=== PATIENT | male | born 1965 | race Caucasian/White ===

== ENCOUNTER 2016-09-01 11:12 | Emergency (ER) | payer OTHER ==
[~2016-09-01] VITALS: Ht 182.9 cm; Wt 88.0 kg
[~2016-09-01 11:12] MED LIST: ACCU-CHEK1 EAC5 MC; BACTRIM DS TAB1 EAC1 ORAL; CEPHALEXIN500 MG ORAL; DOXYCYCLINE MO100 M2 PO; GLUCOPHAGE500 MG ORAL; IBUPROFEN600 MG ORAL; NEURONTIN600 MG ORAL; NORCO 5-325 TA1 EACH ORAL; SINGULAIR10 MG ORAL; SOMA350 MG PO; VENTOLIN HFA18 GM INH
[2016-09-01 11:32] VITALS: BP 129/85
[2016-09-01 13:05] VITALS: BP 120/79
[2016-09-01] MEDS ORDERED: VIREAD300 MG ORAL (13:15)
[2016-09-01] MEDS ORDERED: ISENTRESS400 MG ORAL (13:15)
[2016-09-01 13:30] VITALS: BP 112/82
[2016-09-01 13:33] LABS: BASOPHILS % (AUTO) 0.6 % (0.0-2.0); EOSINOPHILS % (AUTO) 3.1 % (0.0-3.0); LYMPHOCYTES % (AUTO) 20.5 % (20.0-45.0); MEAN CORPUSCULAR HEMOGLOBIN 28.4 PG (27.0-31.0); MEAN CORPUSCULAR VOLUME 86 FL (80-99); MEAN PLATELET VOLUME 11.2 FL (6.5-10.1); MONOCYTES % (AUTO) 8.2 % (1.0-10.0); NEUTROPHILS % (AUTO) 67.6 % (45.0-75.0); PLATELET COUNT 151 K/UL (150-450); RED BLOOD COUNT 5.16 M/UL (4.70-6.10); RED CELL DISTRIBUTION WIDTH 13.7 % (11.6-14.8); WHITE BLOOD COUNT 7.8 K/UL (4.8-10.8)
[2016-09-01 13:44] LABS: ALANINE AMINOTRANSFERASE 26 U/L (3-41); ALBUMIN/GLOBULIN RATIO 1.6 (1.0-2.7); ANION GAP 14 (5-15); ASPARTATE AMINO TRANSFERASE 25 U/L (5-40); CALCIUM 9.5 mg/dL (8.6-10.2); CARBON DIOXIDE 26 mEQ/L (20-30); CHLORIDE 97 mEQ/L (98-107); CREATININE 0.8 mg/dL (0.7-1.2); GLOMERULAR FILTRATION RATE > 60 mL/min (>60); HEMOLYSIS 6; POTASSIUM 3.9 mEQ/L (3.4-4.9); SODIUM 137 mEQ/L (135-145); TOTAL PROTEIN 7.5 g/dL (6.6-8.7)
--- NOTE | 2016-09-01 16:31 | Emergency Room Report ---
History of Present Illness General Chief Complaint: Male Urogenital Problems Source: Patient Present Illness HPI 51-year-old male complains of possible exposure to potential STD times less than 24 hours. States that he was having intercourse nail and nail where he was the penetrating partner during anal intercourse. The patient states that during anal and worse that his condom broke and is worried about having post exposure prophylaxis treatment. States that he is unaware of the patient's STD status and states that he is currently has no symptoms or history of STD. Allergies: Coded Allergies: No Known Allergies (Unverified , 09/12/14) Patient History Past Medical History: see triage record Immunizations: other - patient is unware Reviewed Nursing Documentation: PMH: Agreed, PSxH: Agreed Nursing Documentation-PMH Past Medical History: No History, Except For Hx Cardiac Problems: Yes - high cholesterol Hx Hypertension: Yes Hx Asthma: Yes Hx Diabetes: Yes Hx Cancer: No Hx Gastrointestinal Problems: No Hx Neurological Problems: No Review of Systems All Other Systems: negative except mentioned in HPI Physical Exam Vital Signs Date Time Temp Pulse Resp B/P Pulse Ox O2 Delivery O2 Flow Rate FiO2 09/01/16 11:24 97.9 97 17 129/85 98 Room Air Sp02 EP Interpretation: reviewed, normal General Appearance: no apparent distress, alert, GCS 15, non-toxic Head: normocephalic, atraumatic Eyes: bilateral eye PERRL, bilateral eye normal inspection ENT: hearing grossly normal, no angioedema, normal voice Neck: full range of motion, supple/symm/no masses Respiratory: chest non-tender, lungs clear, normal breath sounds, speaking full sentences Cardiovascular #1: regular rate, rhythm, no edema Gastrointestinal: non tender, soft, non-distended, no guarding Rectal: deferred Genitourinary: normal inspection, penis normal Musculoskeletal: back normal, gait/station normal, normal range of motion Neurologic: alert, oriented x3, responsive, motor strength/tone normal, sensory intact, speech normal Psychiatric: judgement/insight normal, memory normal, mood/affect normal, no suicidal/homicidal ideation Skin: normal color, no rash, warm/dry, well hydrated Lymphatic: no adenopathy Medical Decision Making PA Attestation Dr. Guillen is my supervising physician with whom patient management has been discussed with. Diagnostic Impression: Primary Impression: Patient exposure to body fluids ER Course Pt. presents to the ED c/o body fluid exposure Ddx considered but are not limited to GC/Chlamydia, HIV, Hep, Syphilis, Body Fluid Exposure Vital signs: are WNL, pt. is afebrile H&PE are most consistent with Bodyfluid Exposure ORDERS: CBC, CMP, HIB, Hepatitis Panel baseline ED INTERVENTIONS: Spoke with Roshan Chisholm at [facility]. DISCHARGE: At this time pt. is stable for d/c to home. Will provide printed patient care instructions, and any necessary prescriptions. Care plan and follow up instructions have been discussed with the patient prior to discharge. Last Vital Signs Date Time Temp Pulse Resp B/P Pulse Ox O2 Delivery O2 Flow Rate FiO2 09/01/16 11:24 97.9 97 17 129/85 98 Room Air Disposition: HOME, SELF-CARE Condition: Stable Scripts Raltegravir (Isentress) 400 Mg Tablet 400 MG ORAL EVERY 12 HOURS for 28 Days, #60 TAB Prov: MARIITAMEEM P.A. 09/01/16 Tenofovir Disoproxil Fumarate* (VIREAD*) 300 Mg Tablet 300 MG ORAL DAILY, #30 TAB 0 Refills Prov: SABRY,TAMEEM P.A. 09/01/16 MARIITAMEEM P.A. Sep 01, 2016 16:31
== END 2016-09-01 13:30 | disposition home or self-care (01) ==
LOC: EMR 12:42
DX: Z77.21 Contact with and (suspected) exposure to potentially hazardous body fluids (principal); I10 Essential (primary) hypertension; E11.9 Type 2 diabetes mellitus without complications; J45.909 Unspecified asthma, uncomplicated
CPT/HCPCS: 36415; 80053; 85025; 86703; 99284

== ENCOUNTER 2016-10-19 14:41 | Emergency (ER) | payer OTHER ==
[~2016-10-19] VITALS: Ht 182.9 cm; Wt 72.6 kg
[~2016-10-19 14:41] MED LIST changes: +ISENTRESS400 MG ORAL; +VIREAD300 MG ORAL
[2016-10-19] MEDS ORDERED: KEFLEX500 MG ORAL (16:12)
[2016-10-19 16:22] VITALS: BP 131/76
--- NOTE | 2016-10-19 16:49 | Emergency Room Report ---
History of Present Illness General Chief Complaint: Headache Source: Patient Present Illness HPI Patient is a 51-year-old male who presented after a fall. Patient stated he fell in the shower approximately 2 days ago. He denied vomiting. He reported having moderate neck pain. He denied any numbness or weakness to his extremities. The patient stated he had some pain to his left index finger. Patient denied loss of consciousness. He reported having gradually worsening headache. Patient stated that the swelling to his face and somewhat improved. Allergies: Coded Allergies: No Known Allergies (Unverified , 09/12/14) Patient History Past Medical History: see triage record Reviewed Nursing Documentation: PMH: Agreed, PSxH: Agreed Nursing Documentation-PMH Hx Cardiac Problems: No Hx Hypertension: No Hx Asthma: Yes Hx Diabetes: Yes Hx Cancer: No Hx Gastrointestinal Problems: No Hx Neurological Problems: No Review of Systems All Other Systems: negative except mentioned in HPI Physical Exam Vital Signs Date Time Temp Pulse Resp B/P Pulse Ox O2 Delivery O2 Flow Rate FiO2 10/19/16 15:03 98.2 78 16 122/82 98 Room Air Sp02 EP Interpretation: reviewed, normal General Appearance: normal inspection, well appearing, no apparent distress, alert, GCS 15 Head: atraumatic ENT: normal ENT inspection, hearing grossly normal, normal voice Neck: normal inspection, full range of motion, supple, no bony tend Respiratory: normal inspection, lungs clear, normal breath sounds, no respiratory distress, no retraction, no wheezing Cardiovascular #1: regular rate, rhythm, no edema Gastrointestinal: normal inspection, normal bowel sounds, non tender, soft, no guarding, no hernia Genitourinary: no CVA tenderness Musculoskeletal: normal inspection, back normal, normal range of motion Neurologic: normal inspection, alert, oriented x3, responsive, web production manager III-XII nml as tested, speech normal Psychiatric: normal inspection, judgement/insight normal, mood/affect normal Skin: normal inspection, normal color, no rash Medical Decision Making Diagnostic Impression: Primary Impression: Paronychia Additional Impressions: Facial contusion Cervical muscle strain ER Course Patient presented after a fall.Differential diagnosis included was not limited to neck fracture, CVA, close head injury, syncopal episode, basilar ischemia. Because of complexity of patient's case laboratory testing and imaging studies were ordered. CT imaging of the head read by radiology showed no evident acute intracranial hemorrhage or CVA. There is moderate atrophy noted. The patient was given copy the CT findings. The patient was initially noted to have a left index finger with small amount of soft tissue swelling consistent with an early paronychia infection. Patient given prescription for Keflex.The patient is advised to follow up with primary care doctor in 1-2 days. Patient is advised to return if any worsening condition or if any changes in status that are concerning.X-ray imaging of the cervical spine 4 views interpreted by me showed degenerative changes without evident fracture or malalignment. Last Vital Signs Date Time Temp Pulse Resp B/P Pulse Ox O2 Delivery O2 Flow Rate FiO2 10/19/16 16:22 86 16 131/76 97 Room Air 10/19/16 16:22 98.0 Status: improved Disposition: HOME, SELF-CARE Condition: Stable Scripts Cephalexin* (KEFLEX*) 500 Mg Capsule 500 MG ORAL Q6H, #28 CAP 0 Refills Prov: Clyde Schaffer 10/19/16 Patient Instructions: Head Injury, Adult, Paronychia Clyde Schaffer Oct 19, 2016 16:49
--- NOTE | 2016-10-20 11:00 | Diagnostic Imaging Report ---
Indication: Headache Technique: Contiguous 5 mm thick transaxial imaging of the head obtained in a Siemens Sensation [address] scanner. Soft tissue and bone windows generated. Total Dose length Product (DLP): [address] Dose Index Volume (CTDIvol): 70.38 mGy Comparison: none Findings: The size and configuration of the cortical sulci, basal cisterns, and ventricles are within normal limits for age. There is no mass effect, midline shift, or edema identified. There is no evidence of acute hemorrhage or abnormal intra-axial or extra-axial fluid collections. The bones and soft tissues are unremarkable. Minimal mucosal thickening noted in the paranasal sinuses. Impression: No mass effect, edema or acute bleed. Minimal sinusitis [[facility] has communicated the preliminary results to the Emergency Department. Their findings are largely concordant with this report. The CT scanner at [facility] is accredited by the [employer] and the scans are performed using protocols designed to limit radiation exposure to as low as reasonably achievable to attain images of sufficient resolution adequate for diagnostic evaluation.
--- NOTE | 2016-10-20 11:19 | Diagnostic Imaging Report ---
Indication: Neck Pain Findings: 3 views of the cervical spine were obtained. There is narrowing of several of the mid cervical discs. Alignment is normal. Minimal endplate spurs are also noted. No fracture seen. No soft tissue swelling identified. Open-mouth view is negative. Impression: No acute injury identified.
== END 2016-10-19 16:26 | disposition home or self-care (01) ==
LOC: EMR 15:30
DX: S16.1XXA Strain of muscle, fascia and tendon at neck level, initial encounter (principal); S00.83XA Contusion of other part of head, initial encounter; R51 Headache; L03.012 Cellulitis of left finger; J45.909 Unspecified asthma, uncomplicated; E11.9 Type 2 diabetes mellitus without complications; W18.2XXA Fall in (into) shower or empty bathtub, initial encounter; Y93.E1 Activity, personal bathing and showering; Y92.9 Unspecified place or not applicable; Y99.8 Other external cause status
CPT/HCPCS: 70450; 72040; 99284

== ENCOUNTER 2016-12-31 16:54 | Emergency (ER) | payer OTHER ==
[~2016-12-31] VITALS: Ht 185.4 cm; Wt 84.4 kg
[~2016-12-31 16:54] MED LIST changes: +KEFLEX500 MG ORAL
[2016-12-31] MEDS ORDERED: Norco 5mg/325mg tab ORAL ONE (17:30)
[2016-12-31 18:06] VITALS: BP 124/93
--- NOTE | 2016-12-31 18:45 | Emergency Room Report ---
History of Present Illness General Chief Complaint: Male Urogenital Problems Source: Patient Present Illness HPI 51-year-old male presents emergency department complaining of left testicular swelling, erythema and pain rated as 10 out of 10 in severity localized since last night. He denies hematuria, dysuria or recent unprotected intercourse denies discharge denies fevers or chills,nausea or vomiting. Denies abdominal pain, constipation or diarrhea, pt. denies strenuous activity or heavy lifting. Pt reports previous hx of right inguinal hernia. Patient reports trauma /fall 3 days ago. Denies CP, Palpitations, LOC, AMS, dizziness, Changes in Vision, Sensation, paresthesias, or a sudden severe headache. Allergies: Coded Allergies: No Known Allergies (Unverified , 09/12/14) Patient History Past Medical History: see triage record Past Surgical History: none Pertinent Family History: none Immunizations: UTD Reviewed Nursing Documentation: PMH: Agreed, PSxH: Agreed Nursing Documentation-PMH Hx Cardiac Problems: No Hx Hypertension: No Hx Asthma: Yes Hx Diabetes: Yes Hx Cancer: No Hx Gastrointestinal Problems: No Hx Neurological Problems: No Review of Systems All Other Systems: negative except mentioned in HPI Physical Exam Vital Signs Date Time Temp Pulse Resp B/P Pulse Ox O2 Delivery O2 Flow Rate FiO2 12/31/16 17:08 97.5 115 17 128/91 99 Room Air Sp02 EP Interpretation: reviewed, abnormal - tachycardic at 115 bpm General Appearance: alert, GCS 15, non-toxic, moderate distress Head: normocephalic, atraumatic Eyes: bilateral eye PERRL, bilateral eye normal inspection ENT: hearing grossly normal, normal pharynx, no angioedema, normal voice Neck: full range of motion, supple/symm/no masses Respiratory: lungs clear, normal breath sounds, speaking full sentences Cardiovascular #1: regular rate, rhythm, no edema Gastrointestinal: normal bowel sounds, non tender, soft, no guarding, no rebound Rectal: deferred Genitourinary: normal inspection, no CVA tenderness, penis normal, other - left testicular swelling, erythema, cremasteric reflex is difficult to asssess, positive phren's sign, pt. had moderate relief of pain with elevation, no d/c noted , no lesions. Musculoskeletal: back normal, gait/station normal, normal range of motion, non- tender Neurologic: alert, oriented x3, responsive, motor strength/tone normal, sensory intact, speech normal Psychiatric: judgement/insight normal, memory normal, mood/affect normal Skin: normal color, no rash, warm/dry, well hydrated Lymphatic: no adenopathy Medical Decision Making PA Attestation Dr. Chen is my supervising Physician whom patient management has been discussed with. Diagnostic Impression: Primary Impression: Epididymitis Additional Impression: Testicular swelling, left ER Course 51-year-old male presents emergency department complaining of left testicular swelling, erythema and pain rated as 10 out of 10 in severity localized since last night. He denies hematuria, dysuria or recent unprotected intercourse denies discharge denies fevers or chills,nausea or vomiting. Denies abdominal pain, constipation or diarrhea, pt. denies strenuous activity or heavy lifting. Pt reports previous hx of right inguinal hernia. Patient reports trauma /fall 3 days ago. Ddx considered but are not limited to testicular torsion, epididymitis, orchitis , abscess, hernia Vital signs: pt. is afebrile , tachycardic H&PE are most consistent with testicular torsion as cremasterics reflex is absent/ difficult to visualize due to swelling. Positive phren signs, pain relief with elevation of testicles. - PE was performed with male signal operator : risk engineer Tish. ORDERS: - Testicular ultrasound: significant swelling noted, good circulation, increased vascularity of the left testicle, no torsion, no fluid filled masses, per US tech most consistent with epididymitis. - UA: pt. unable to provide urine, declines straight cath. ED INTERVENTIONS: - [place] PO -Rocephin IM d/w pt results of US, and that he will be treated with abx, and given anti- inflammatory medications. DISCHARGE: At this time pt. is stable for d/c to home. Will provide printed patient care instructions, and any necessary prescriptions. Care plan and follow up instructions have been discussed with the patient prior to discharge. Last Vital Signs Date Time Temp Pulse Resp B/P Pulse Ox O2 Delivery O2 Flow Rate FiO2 12/31/16 18:06 97.4 106 16 124/93 99 Room Air Disposition: HOME, SELF-CARE Condition: Stable Scripts Hydrocodone Bit/Acetaminophen 5-325* (NORCO 5-325*) 1 Each Tablet 1 TAB ORAL Q6H Y for For Pain, #5 TAB 0 Refills Prov: Nalini Sinclair 12/31/16 Ibuprofen* (MOTRIN*) 600 Mg Tablet 600 MG ORAL THREE TIMES A DAY, #30 TAB 0 Refills Prov: Nalini Sinclair 12/31/16 Doxycycline Hyclate* (VIBRAMYCIN*) 100 Mg Capsule 100 MG ORAL EVERY 12 HOURS for 7 Days, #14 CAP 0 Refills Prov: Nalini Sinclair 12/31/16 Referrals: [facility],REFERR[facility] (PCP) Patient Instructions: Epididymitis Additional Instructions: Take medications as directed. Follow up with PCP in 3-5 days Return sooner to ED if new symptoms occur, or current symptoms become worse. Do not drink alcohol, drive, or operate heavy machinery while taking [ ] as this may cause drowsiness. - Please note that this Emergency Department Report was dictated using [employer] engineer technology software, occasionally this can lead to erroneous entry secondary to interpretation by the dictation equipment. Nalini Sincalir December 31, 2016 18:44
[2016-12-31 19:30] VITALS: BP 125/99
[2016-12-31] MEDS ORDERED: Lidocaine 1% MPF 10mg/ml 5ml ONE (19:41)
[2016-12-31] MEDS ORDERED: IBUPROFEN600 MG ORAL (19:47)
[2016-12-31] MEDS ORDERED: VIBRAMYCIN100 MG ORAL (19:47)
[2016-12-31] MEDS ORDERED: NORCO 5-325 TA1 EACH ORAL (19:50)
[2016-12-31 19:56] VITALS: BP 125/99
--- NOTE | 2017-01-01 10:09 | Diagnostic Imaging Report ---
Indications: Left testicular pain, swelling, redness Technique: Grayscale and duplex images of the scrotum Comparison:None Findings:The right testicle measures 4.2cm in length. It demonstrates normal echogenicity. Normal Doppler flow. Normal epididymis. There is a small hydrocele The left testicle measures 4.1 cm in length. It demonstrates normal echogenicity. It demonstrates slight hyperemia. The epididymal head and tail are markedly enlarged and hyperemic. There is a small hydrocele. Echogenic hypervascular material appears around the epididymis, may reflect chest prominent hypervascular epididymal tissue. There does appear to be a component of adjacent scrotal hyperemia. There may also be a component of pyocele. There is questionably a small hydrocele. Impression: Findings compatible with epididymitis on the left. There may also be a component of orchitis. There is also suggestion of inflammation of the adjacent scrotal wall. There is a small hydrocele and possibly a component of pyocele Normal right testicle. Incidental finding of small right hydrocele No evidence of torsion
== END 2016-12-31 19:56 | disposition home or self-care (01) ==
LOC: EMR 17:36
DX: N45.1 Epididymitis (principal); J45.909 Unspecified asthma, uncomplicated; E11.9 Type 2 diabetes mellitus without complications
CPT/HCPCS: 76870; 96372; 99284; J0696